=== PATIENT | female | born 1990 | race Caucasian/White ===

== ENCOUNTER 2019-03-15 23:40 | Emergency (ER) | payer MEDICAID ==
[~2019-03-15] VITALS: Ht 167.6 cm; Wt 57.8 kg
[2019-03-15 23:41] VITALS: BP 145/75
== END 2019-03-16 02:04 | disposition home or self-care (01) ==
LOC: ED 03-16 01:52
DX: M79.672 Pain in left foot (principal)
CPT/HCPCS: 71046; 99284